=== PATIENT | female | born 1950 | race Caucasian/White ===

== ENCOUNTER → 2019-03-25 | Outpatient (CLI) | payer MEDICARE, OTHER ==
--- NOTE | 2019-03-26 15:28 | RAD ---
EXAM: Right foot, 2 views. HISTORY: Blunt trauma. COMPARISON: None. FINDINGS: 2 views of the right foot are obtained. There is no acute fracture, dislocation or subluxation. There is minimal enthesopathy at the Achilles tendon insertion. There is a small plantar spur. IMPRESSION: No acute osseous finding. Electronically signed by: Dulce Maria Steiner MD (03/26/2019 3:26 PM) [id number]
== END | disposition home or self-care (01) ==
LOC: DXRAD 18:21
PROVIDERS: ATTEND Physician Assistant
DX: M77.51 Other enthesopathy of right foot and ankle (principal); X58.XXXA Exposure to other specified factors, initial encounter; Y93.89 Activity, other specified; Y92.89 Other specified places as the place of occurrence of the external cause; Y99.8 Other external cause status
CPT/HCPCS: 73620

== ENCOUNTER → 2019-07-08 | Outpatient (CLI) | payer MEDICARE, OTHER ==
--- NOTE | 2019-07-08 16:53 | RAD ---
EXAM: Chest, 2 views. HISTORY: Shortness of air. COMPARISON: None. FINDINGS: 2 views of the chest are obtained. There is lateral left upper lobe interstitial infiltrate. There is no pleural effusion or pneumothorax. The heart is normal in size. IMPRESSION: Lateral left upper lobe interstitial infiltrate. Electronically signed by: Dulce Maria Steiner MD (07/08/2019 4:50 PM) [place] [id number]
== END | disposition home or self-care (01) ==
LOC: DXRAD 15:38
PROVIDERS: ATTEND Physician Assistant
DX: R91.8 Other nonspecific abnormal finding of lung field (principal)
CPT/HCPCS: 71046

== ENCOUNTER → 2020-11-01 | Outpatient (CLI) | payer MEDICARE, OTHER ==
--- NOTE | 2020-11-02 09:42 | RAD ---
EXAM: 3 views of the right wrist DATE: 11/01/2020 1:13 PM INDICATION: Reason: RIGHT WRIST PAIN S/P FALL LAST NIGHT / Spl. Instructions: / History: COMPARISON: No Prior FINDINGS: No acute fracture or dislocation. Triscaphe DJD. Thumb CMC DJD. Soft tissue swelling at the dorsal as pect of the right wrist.. Decreased bone mineral density. IMPRESSION: 1. No acute fracture or dislocation. 2. 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 Electronically signed by: Marco Worthington MD (11/02/2020 9:40 AM) [id number]
== END ==
LOC: RAD 13:07
PROVIDERS: ATTEND Specialist
DX: M19.031 Primary osteoarthritis, right wrist (principal)
CPT/HCPCS: 73110